=== PATIENT | female | born 1985 | race Caucasian/White ===

== ENCOUNTER 2018-01-01 22:15 | Inpatient (IN) | payer SELFPAY ==
[~2018-01-01] VITALS: Ht 152.4 cm; Wt 76.2 kg
[2018-01-01] MEDS ORDERED: NALOXONE HCL 0.4 MG/ML 1ML VIAL IM PRN (23:00)
[2018-01-01] MEDS ORDERED: METHYLERGONOVINE MALEATE 0.2 MG/ML IM PRN (23:00)
[2018-01-01] MEDS ORDERED: BUTORPHANOL TARTRATE 2 MG/ML VIAL IV PRN (23:00)
[2018-01-01] MEDS ORDERED: LIDOCAINE HCL 1% 20ML VIAL (Pyxis) INJ INFIL SCH (23:00)
[2018-01-01] MEDS ORDERED: CARBOPROST TROMETHAMINE 250 MCG/ML AMPUL IM PRN (23:00)
[2018-01-01] MEDS: LACTATED RINGERS 1,000 ML IV SCH (23:05)
[2018-01-01 23:44] LABS: BASOPHILS % 0.3 % (0.0-2.0); EOSINOPHILS % 1.3 % (0.0-5.0); HEMATOCRIT. 34.3 % (36.0-48.0); HEMOGLOBIN. 11.6 g/dL (12.0-16.0); LYMPHOCYTES % 18.9 % (20.0-50.0); MEAN CORPUSCULAR HEMOGLOBIN 32.3 pg (28.0-32.0); MEAN CORPUSCULAR VOLUME 95.7 fL (81.0-99.0); MEAN PLATELET VOLUME 8.1 fl (7.4-10.4); MONOCYTES % 10.7 % (2.0-8.0); NEUTROPHILS % 68.8 % (40.0-76.0); PLATELET 265 x1000/uL (130-400); RED BLOOD CELL COUNT 3.58 mill/uL (4.2-5.4); RED CELL DISTRIBUTION WIDTH 13.5 % (11.6-14.6)
[2018-01-01] MEDS ORDERED: PNV1TABL76 PO (23:47)
[2018-01-01 23:52] LABS: PARTIAL THROMBOPLASTIN TIME 27.2 sec (23.4-31.0); PROTHROMBIN TIME 10.2 sec (9.4-11.6)
[2018-01-01 23:53] LABS: CLARITY URINE CLEAR (CLEAR); COLOR URINE YELLOW (YELLOW); KETONES URINE NEGATIVE (NEGATIVE); LEUKOCYTE ESTERASE URINE 2+ (NEGATIVE); NITRITE URINE NEGATIVE (NEGATIVE); OCCULT BLOOD URINE NEGATIVE (NEGATIVE); PH URINE 6.5 (4.5-8.0); PROTEIN URINE NEGATIVE (NEGATIVE); SPECIFIC GRAVITY URINE 1.012 (1.005-1.030); UROBILINOGEN URINE 0.2 E.U./dL (0.2-1.0)
[2018-01-02 00:13] LABS: *AMPHETAMINES SCREEN URINE NEGATIVE (NEGATIVE); *BARBITURATES SCREEN URINE NEGATIVE (NEGATIVE); *BENZODIAZEPINES SCREEN URINE NEGATIVE (NEGATIVE); *COCAINE SCREEN URINE NEGATIVE (NEGATIVE); CANNABINOID URINE SCREEN NEGATIVE (NEGATIVE); METHADONE URINE SCREEN NEGATIVE (NEGATIVE); OPIATES URINE SCREEN NEGATIVE (NEGATIVE); PHENCYCLIDINE URINE SCREEN NEGATIVE (NEGATIVE)
[2018-01-02] MEDS ORDERED: DEXT 5%/LR + PITOCIN 20UNITS/L 1,000 ML IV SCH ×2 (03:15→09:45)
[2018-01-02] MEDS: LACTATED RINGERS 1,000 ML IV SCH ×2 (06:26→08:42)
[2018-01-02] MEDS ORDERED: INFLUENZA VIRUS VACCINE 0.5ML SYR IM ONE (09:00)
[2018-01-02] MEDS ORDERED: METHYLERGONOVINE MALEATE 0.2 MG/ML IM PRN (09:45)
[2018-01-02] MEDS ORDERED: BENZOCAINE/LANOLIN/ALOE VERA SPRAY TOP PRN (09:45)
[2018-01-02] MEDS ORDERED: LANOLIN OINT 0.25 GM TUBE TOP PRN (09:45)
[2018-01-02] MEDS ORDERED: ACETAMINOPHEN WITH CODEINE 300/30MG TABLET PO PRN (09:45)
[2018-01-02] MEDS ORDERED: HEMORRHOIDAL SUPP PR PRN (09:45)
[2018-01-02] MEDS ORDERED: GLYCERIN/WITCH HAZEL LEAF MEDICATED PAD TOP PRN (09:45)
[2018-01-02] MEDS ORDERED: DIPHENHYDRAMINE 25MG CAPSULE PO PRN (09:45)
[2018-01-02] MEDS ORDERED: BISACODYL 10MG SUPP PR PRN (09:45)
[2018-01-02] MEDS ORDERED: MISOPROSTOL 200MCG TABLET RC NR (10:48)
[2018-01-02 11:02] LABS: HEPATITIS B SURFACE ANTIGEN NEGATIVE
[2018-01-02] MEDS: ACETAMINOPHEN WITH CODEINE 300/30MG TABLET PO PRN ×2 (11:57→16:13)
[2018-01-02] MEDS: MAGNESIUM/ALUMINUM HYDROXIDE/SIMETHICONE 30ML UDC PO SCH ×3 (12:10→20:21)
[2018-01-02] MEDS: SIMETHICONE 80MG TABLET CHEW PO SCH ×3 (12:12→20:22)
[2018-01-02 12:50] VITALS: BP 96/46
[2018-01-02 13:15] VITALS: BP 102/60
[2018-01-02] MEDS ORDERED: MISOPROSTOL 200MCG TABLET ONE (13:44)
[2018-01-02 16:14] VITALS: BP 95/50
[2018-01-02 19:40] VITALS: BP 105/55
[2018-01-02] MEDS: DOCUSATE SODIUM 100MG CAPSULE PO SCH (20:23)
[2018-01-02] MEDS: IBUPROFEN 400MG TABLET PO PRN (20:24)
[2018-01-03] VITALS: BP 91/58
[2018-01-03 08:11] VITALS: BP 89/56
[2018-01-03 08:20] LABS: BASOPHILS % 0.4 % (0.0-2.0); EOSINOPHILS % 1.7 % (0.0-5.0); HEMATOCRIT. 32.8 % (36.0-48.0); HEMOGLOBIN. 10.9 g/dL (12.0-16.0); LYMPHOCYTES % 22.5 % (20.0-50.0); MEAN CORPUSCULAR HEMOGLOBIN 32.2 pg (28.0-32.0); MEAN CORPUSCULAR VOLUME 97.1 fL (81.0-99.0); MONOCYTES % 7.7 % (2.0-8.0); NEUTROPHILS % 67.7 % (40.0-76.0); PLATELET 228 x1000/uL (130-400); RED BLOOD CELL COUNT 3.38 mill/uL (4.2-5.4); RED CELL DISTRIBUTION WIDTH 13.9 % (11.6-14.6)
[2018-01-03] MEDS: MAGNESIUM/ALUMINUM HYDROXIDE/SIMETHICONE 30ML UDC PO SCH ×4 (08:51→20:31)
[2018-01-03] MEDS: PRENATAL VIT/FE FUMARATE/FA TABLET PO SCH (08:51)
[2018-01-03] MEDS: SIMETHICONE 80MG TABLET CHEW PO SCH ×4 (08:51→20:32)
[2018-01-03] MEDS: FERROUS SULFATE 325MG TABLET PO SCH ×2 (13:54→16:54)
[2018-01-03 16:49] VITALS: BP 112/72
[2018-01-03] MEDS: IBUPROFEN 400MG TABLET PO PRN (16:54)
[2018-01-03 20:00] VITALS: BP 95/59
[2018-01-03] MEDS: DOCUSATE SODIUM 100MG CAPSULE PO SCH (20:31)
[2018-01-03 23:46] VITALS: BP 101/60
[2018-01-04 08:08] VITALS: BP 103/61
[2018-01-04] MEDS: FERROUS SULFATE 325MG TABLET PO SCH (08:58)
[2018-01-04] MEDS: SIMETHICONE 80MG TABLET CHEW PO SCH (08:58)
[2018-01-04] MEDS: PRENATAL VIT/FE FUMARATE/FA TABLET PO SCH (08:58)
[2018-01-04] MEDS: MAGNESIUM/ALUMINUM HYDROXIDE/SIMETHICONE 30ML UDC PO SCH (08:58)
[2018-01-04] MEDS ORDERED: TETANUS, DIPHTHERIA, PERTUSSIS VAC/PF 0.5ML (>7YR OLD) IM ONE (09:00)
[2018-01-04] MEDS: ACETAMINOPHEN WITH CODEINE 300/30MG TABLET PO PRN (10:24)
[2018-01-04] MEDS: IBUPROFEN 400MG TABLET PO PRN (10:24)
== END 2018-01-04 11:40 | disposition home or self-care (01) | DRG 560 ==
LOC: L&D 22:15 → OBSVTOIN 22:15 → 7EST PP/OB 01-02 16:04
PROVIDERS: ADMIT Obstetrics & Gynecology; ATTEND Obstetrics & Gynecology
PROC: 10E0XZZ Delivery of Products of Conception, External Approach (ICD-10-PCS; principal; 2018-01-02 10:00)
DX: O80 Encounter for full-term uncomplicated delivery (principal); Z37.0 Single live birth; Z3A.39 39 weeks gestation of pregnancy
CPT/HCPCS: 36415; 80305; 81003; 85025; 85610; 85730; 86592; 86703; 86762; 86850; 86900; 87086; 87340; 90686; 90715; G0378; J2590; J3490; J7120